=== PATIENT | male | born 1950 | race Two or more races ===

== ENCOUNTER 2024-06-23 10:16 | Emergency (ER) | payer OTHER ==
[~2024-06-23] VITALS: Ht 154.9 cm; Wt 61.2 kg
[~2024-06-23 10:16] MED LIST: CRESTOR5 MG PO; LIPITOR20 MG PO
[2024-06-23] MEDS ORDERED: TOPROL XL50 M1 (10:37)
[2024-06-23] MEDS ORDERED: HYDRALAZINE HC100 MG PO (10:38)
[2024-06-23] MEDS ORDERED: CHILDREN'S ASPI81 MG (10:38)
[2024-06-23] MEDS ORDERED: ATORVASTATIN CA40 MG PO (10:38)
[2024-06-23] MEDS ORDERED: NORVASC5 MG PO (10:39)
[2024-06-23] MEDS ORDERED: PEPCID AC20 MG (10:39)
[2024-06-23 13:38] LABS: BILIRUBIN TOTAL 0.23 mg/dL (0.3-1.2); CALCIUM 9.9 mg/dL (8.5-10.1); CREATININE SERUM 1.14 mg/dL (0.70-1.30); GFR 63.32; GLOBULINA 4.4 G/DL (2.4-3.5); POTASSIUM 4.44 mEq/L (3.5-5.1); TOTAL PROTEIN 8.4 gm/dL (6.4-8.2)
[2024-06-23 13:47] LABS: PH,URINE 7.5 (5.0-8.0); URINE APPEARANCE Clear; URINE BILIRRUBIN Negative (NEGATIVE); URINE BLOOD Negative; URINE COLOR Yellow; URINE GLUCOSE Negative (NEGATIVE); URINE KETONE Negative (NEGATIVE); URINE LEUKOCYTE Negative; URINE NITRATE Negative; URINE UROBILINOGEN 0.2 E.U./dl
[2024-06-23 13:51] LABS: URINE BACTERIA 7.3 uL (0.0-1933); URINE RBC 2.2 uL (0.0-20.8)
[2024-06-23 13:54] LABS: URINE EPITHELIAL CELLS 0.9 uL (0.0-38.8); URINE PROTEIN 100 (NEGATIVE); URINE WBC 1.5 uL (0.0-23.2)
[2024-06-23 14:02] LABS: BASO % 0.3 % (0.1-1.2); EOS # 0.08 (0.04-0.54); EOS % 0.7 % (0.7-7.0); HEMATOCRIT 34.1 % (40.1-51.0); HEMOGLOBIN 10.9 g/dL (13.7-17.5); LYMPH # 1.88 (1.18-3.74); LYMPH % 16.3 % (19.3-53.1); MEAN CORPUSCULAR HEMOGLOBIN 26.5 pg (25.6-32.2); MONO # 0.66 (0.24-0.82); MONO % 5.7 % (4.7-12.5); NEUT # 8.82 (1.56-6.13); NEUT % 76.6 % (34.0-71.1); PLATELET COUNT 412 K/uL (163-369); RED BLOOD COUNT 4.11 M/uL (4.63-6.08); RED CELL DISTRIBUTION WIDTH 15.8 % (11.6-14.4)
== END 2024-06-23 18:14 | disposition home or self-care (01) ==
LOC: ER 10:29
PROVIDERS: Emergency Medicine
DX: I69.351 Hemiplegia and hemiparesis following cerebral infarction affecting right dominant side (principal); T38.3X5A Adverse effect of insulin and oral hypoglycemic [antidiabetic] drugs, initial encounter; Y92.89 Other specified places as the place of occurrence of the external cause; E11.9 Type 2 diabetes mellitus without complications; Z79.84 Long term (current) use of oral hypoglycemic drugs; I10 Essential (primary) hypertension